=== PATIENT | female | born 1970 | race Caucasian/White ===

== ENCOUNTER 2018-04-04 16:09 | Emergency (ER) | payer BC ==
[2018-04-04 18:02] LABS: Absolute Lymphocytes (CBC) 1.5 K/uL (0.7-4.9); Absolute Monocytes 0.8 K/uL (0.1-1.3); Basophils % 0.6 % (0-1.3); Eosinophils % 3.7 % (0-4.4); Hematocrit 40.5 % (36.0-45.0); Lymphocytes % 12.6 % (15.3-44.8); MPV 9.3 fL (7.6-11.3); Monocytes % 6.6 % (3.3-12.3); RBC Red Blood Cell Count 5.58 M/uL (3.86-4.86)
[2018-04-04] MEDS ORDERED: VANCOMYCIN ORAL SOLN 250 MG/5 ML OSYR PO SCH (18:15)
[2018-04-04 18:21] LABS: Albumin 3.3 g/dL (3.4-5.0); Bilirubin Direct 0.1 mg/dL (0-0.2); Bilirubin Total 0.4 mg/dL (0.2-1.0); Potassium 3.1 mmol/L (3.5-5.1); Protein, Total 7.3 g/dL (6.4-8.2)
[2018-04-04] MEDS ORDERED: HYDROCODONE/APAP 5/325 MG TAB ONE (18:22)
[2018-04-04] MEDS ORDERED: KCL 20 MEQ/100 mL IVPB 20 MEQ/100 ML BAG IV ONE (18:56)
--- NOTE | 2018-04-04 20:16 | RAD REPORT ---
EXAM DESCRIPTION: CTAbdomen Pelvis W Contrast - 04/04/2018 8:06 pm CLINICAL HISTORY: Abdominal pain. ABD PAIN COMPARISON: Stone Protocol dated 03/07/2018; Stone Protocol dated 11/08/2017 TECHNIQUE: Biphasic CT imaging of the abdomen and pelvis was performed with 100 ml non-ionic IV cont rast. All CT scans are performed using dose optimization technique as appropriate and may include automated exposure control or mA/KV adjustment according to patient size. FINDINGS: The lung bases are clear. The liver, spleen, pancreas, adrenal glands are within normal limits. Small caliceal renal calculi bi laterally the largest on the right measuring 5 mm. No bowel obstruction, free air, free fluid or abscess. Inflammatory changes are seen throughout the e ntire colon, greatest in the descending colon the proximal sigmoid colon compatible with moderately s evere colitis. No pneumatosis coli seen. No evidence of appendicitis. No evidence of significant lym phadenopathy. No suspicious bony findings. IMPRESSION: Moderately severe colitis is present, greatest in the descending colon and proximal sigm oid colon. Bilateral nephrolithiasis without hydronephrosis
--- NOTE | 2018-04-04 20:40 | ER ---
Nurse's Notes [facility] Name: Shaylee Moraes Age: 48 yrs Sex: Female : 1970 Arrival Date: 04/04/2018 Time: 16:11 Bed 15 Private MD: Maynor Cabral E Diagnosis: Enterocolitis due to Clostridium difficile;Hypokalemia Presentation: 04/04 16:12 Presenting complaint: Patient states: i was 03/18/18; was tested for C Diff; reports and hj pain, nausea, and diarrhea getting worse for the last 3 days; took Imodium on and off;. Transition of care: patient was not received from another setting of care. Onset of symptoms was April 04, 2018. Risk Assessment: Do you want to hurt yourself or someone else? Patient reports no desire to harm self or others. Initial Sepsis Screen: Does the patient meet any 2 criteria? No. Patient's initial sepsis screen is negative. Does the patient have a suspected source of infection? No. Patient's initial sepsis screen is negative. Care prior to arrival: None. 16:12 Method Of Arrival: Ambulatory 16:12 Acuity: MIYA 3 hj Triage Assessment: 16:16 General: Appears in no apparent distress. uncomfortable, Behavior is calm, cooperative, hj appropriate for age. Pain: Complains of pain in abdomen. GI: Reports lower abdominal pain, upper abdominal pain, nausea. 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 - Social history:: Smoking status: Patient/guardian denies using tobacco, Patient/guardian denies using alcohol. - Ebola Screening: : Patient negative for fever greater than or equal to 101.5 degrees Fahrenheit, and additional compatible Ebola Virus Disease symptoms Patient denies exposure to infectious person Patient denies travel to an Ebola-affected area in the 21 days before illness onset. Screenin:16 Abuse screen: Denies threats or abuse. Denies injuries from another. Nutritional hj screening: No deficits noted. Tuberculosis screening: No symptoms or risk factors identified. Fall Risk None identified. Assessment: 16:16 GI: Abdomen is non-distended, obese. hj 16:30 General: Appears uncomfortable, obese, Behavior is calm, cooperative. Neuro: No ls4 deficits noted. Cardiovascular: No deficits noted. Respiratory: No deficits noted. GI: Reports lower abdominal pain, upper abdominal pain, cramping, diarrhea, bloody stool, epigastric pain, flatulence, gaseousness. : No deficits noted. Musculoskeletal: No deficits noted. 17:40 Reassessment: Patient and/or family updated on plan of care and expected duration. Pain ls4 level reassessed. Patient is alert, oriented x 3, equal unlabored respirations, skin warm/dry/pink. 18:40 Reassessment: Patient and/or family updated on plan of care and expected duration. Pain ls4 level reassessed. Patient is alert, oriented x 3, equal unlabored respirations, skin warm/dry/pink. 19:00 General: Appears in no apparent distress. comfortable, slender, Behavior is calm, rr5 cooperative, appropriate for age. 19:00 Pain: Complains of pain in left lower quadrant Pain radiates to right lower quadrant rr5 Pain currently is 6 out of 10 on a pain scale. Quality of pain is described as aching, Pain began gradually, Is intermittent. Neuro: Level of Consciousness is awake, alert, obeys commands, Oriented to person, place, time, situation, Appropriate for age. Cardiovascular: Capillary refill < 3 seconds Patient's skin is warm and dry. Respiratory: Airway is patent Respiratory effort is even, unlabored, Respiratory pattern is regular, symmetrical. GI: Abdomen is obese, Reports lower abdominal pain, cramping, diarrhea, epigastric pain, flatulence, gaseousness. : No deficits noted. EENT: No signs and/or symptoms were reported regarding the EENT system. Derm: Skin is intact, Skin temperature is warm. 20:10 Reassessment: Patient appears in no apparent distress at this time. Patient is alert, rr5 oriented x 3, equal unlabored respirations, skin warm/dry/pink. awaiting for CT scan report. 21:30 Reassessment: Patient appears in no apparent distress at this time. Patient is alert, rr5 oriented x 3, equal unlabored respirations, skin warm/dry/pink. reassess by provider patient is for discharge after the infusion. Patient states symptoms have improved. 22:30 Reassessment: Patient appears in no apparent distress at this time. Patient and/or rr5 family updated on plan of care and expected duration. Pain level reassessed. Patient is alert, oriented x 3, equal unlabored respirations, skin warm/dry/pink. discharge instruction given and explained without complaints made. Vital Signs: 16:16 BP 137 / 83; Pulse 107; Resp 18; Temp 97.5(TE); Pulse Ox 96% on R/A; Weight 117.93 kg; hj Height 5 ft. 5 in. (165.10 cm); Pain 7/10; 18:40 BP 132 / 74; Pulse 89; Resp 16; Temp 97.9; Pulse Ox 99% on R/A; Pain 5/10; ls4 21:11 BP 119 / 73; Pulse 82; Resp 20; Pulse Ox 98% on R/A; mt 16:16 Body Mass Index 43.26 (117.93 kg, 165.10 cm) hj ED Course: 16:11 Patient arrived in ED. mr 16:11 Maynor Cabral MD is Private Physician. mr 16:14 Triage completed. hj 16:15 Initial lab(s) drawn, by sd, sent to lab. Inserted saline lock: 20 gauge in right hand, ls4 using aseptic technique. 16:16 Arm band placed on left wrist. hj 16:18 Patient has correct armband on for positive identification. Placed in gown. Bed in low hj position. Call light in reach. Side rails up X 1. Adult w/ patient. 16:20 Melissa Ramírez, DENNIS is Primary Nurse. ls4 16:44 Ladan Zurita FNP-C is PHCP. snw 16:44 Maynor Maravilla MD is Attending Physician. snw 18:42 No provider procedures requiring assistance completed. ls4 19:43 Radiology exam delayed due to IV insertion attempt and/or patient not having vm2 appropriate IV at this time. 20:00 Inserted saline lock: 20 gauge in left forearm, using aseptic technique. rr5 20:08 CT Abd/Pelvis - W/Contrast In Process Unspecified. EDMS 20:39 Maynor Cabral MD is Referral Physician. snw 22:33 IV discontinued, intact, bleeding controlled, No redness/swelling at site. Pressure rr5 dressing applied. Administered Medications: 18:16 Drug: Elton 5 mg-325 mg 1 tabs Route: PO; ls4 18:43 Follow up: Response: No adverse reaction; Marked relief of symptoms ls4 18:39 Drug: vancoMYCIN 250 mg Route: PO; ls4 18:43 Follow up: Response: No adverse reaction ls4 19:33 Drug: Potassium Chloride 20 mEq Route: IV; Rate: calculated rate; Site: right hand; rr5 21:30 Follow up: Response: No adverse reaction; IV Status: Completed infusion; IV Intake: rr5 100ml 19:33 Drug: NS 0.9% 1000 ml Route: IV; Rate: 1 bolus; Site: right hand; rr5 21:30 Follow up: Response: No adverse reaction; IV Status: Completed infusion; IV Intake: rr5 1000ml 21:35 Drug: Bentyl 20 mg Route: PO; rr5 22:07 Follow up: Response: No adverse reaction rr5 21:36 Drug: fentaNYL (PF) 50 mcg Route: IM; Site: right gluteus; rr5 22:08 Follow up: Response: No adverse reaction rr5 22:05 CANCELLED (not available. provider informed): vancoMYCIN 250 mg PO once rr5 Intake: 21:30 IV: 1000ml; Total: 1000ml. rr5 21:30 IV: 100ml; Total: 1100ml. rr5 Outcome: 20:39 Discharge ordered by . snw 22:35 Discharged to home ambulatory, with family. rr5 22:35 Condition: stable 22:35 Discharge instructions given to patient, Instructed on discharge instructions, follow up and referral plans. medication usage, Demonstrated understanding of instructions, follow-up care, medications, Prescriptions given X 4. 22:36 Patient left the ED. rr5 Signatures: Dispatcher [employer] EDMS Ladan Zurita, TOOLING ENGINEER-C TOOLING ENGINEER-Csnw UrbanoTeena OracioCameron dobbins RN DENNIS Velvet [facility] Mariella [place] Melissa Ramírez RN RN ls4 Car Wahl RN RN rr5 Corrections: (The following items were deleted from the chart) 16:19 16:16 Pulse 107bpm; Resp 18bpm; Pulse Ox 96% RA; Temp 97.5F Temporal; 117.93 kg; Height hj 5 ft. 5 in.; BMI: 43.2; Pain 710; hj 19:43 19:16 Patient moved to [facility] vm2
--- NOTE | 2018-04-04 20:40 | EDPHYS ---
Physician Documentation [facility] Name: Shaylee Moraes Age: 48 yrs Sex: Female : 1970 Arrival Date: 04/04/2018 Time: 16:11 Bed 15 Private MD: Maynor Cabral E ED Physician Maynor Maravilla HPI: 04/04 19:33 This 48 yrs old Female presents to ER via Ambulatory with complaints of snw Nausea, Dizziness, Abdominal Pain. 19:33 The patient presents to the emergency department with nausea, diarrhea, abdominal pain, snw of the right lower quadrant and left lower quadrant, described as achy, crampy, and does not radiate. Onset: The symptoms/episode began/occurred 2 day(s) ago, 2 month(s) ago, and became persistent. Possible causes: antibiotics, pt dx yesterday with C. diff. The symptoms are aggravated by nothing. Severity of symptoms: At their worst the symptoms were moderate. The patient has not experienced similar symptoms in the past. The patient has been recently seen by a physician: the patient's primary care provider. 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 - Social history:: Smoking status: Patient/guardian denies using tobacco, Patient/guardian denies using alcohol. - Ebola Screening: : Patient negative for fever greater than or equal to 101.5 degrees Fahrenheit, and additional compatible Ebola Virus Disease symptoms Patient denies exposure to infectious person Patient denies travel to an Ebola-affected area in the 21 days before illness onset. ROS: 19:33 Constitutional: Negative for fever, chills, and weight loss, Eyes: Negative for injury, snw pain, redness, and discharge, ENT: Negative for injury, pain, and discharge, Neck: Negative for injury, pain, and swelling, Cardiovascular: Negative for chest pain, palpitations, and edema, Respiratory: Negative for shortness of breath, cough, wheezing, and pleuritic chest pain, Back: Negative for injury and pain, : Negative for injury, bleeding, discharge, and swelling, MS/Extremity: Negative for injury and deformity, Skin: Negative for injury, rash, and discoloration, Neuro: Negative for headache, weakness, numbness, tingling, and seizure. 19:33 Abdomen/GI: Positive for abdominal pain, diarrhea, abdominal cramps, very mucus like in nature. Exam: 19:31 Constitutional: This is a well developed, well nourished patient who is awake, alert, snw and in no acute distress. Head/Face: Normocephalic, atraumatic. Eyes: Pupils equal round and reactive to light, extra-ocular motions intact. Lids and lashes normal. Conjunctiva and sclera are non-icteric and not injected. Cornea within normal limits. Periorbital areas with no swelling, redness, or edema. ENT: Nares patent. No nasal discharge, no septal abnormalities noted. Tympanic membranes are normal and external auditory canals are clear. Oropharynx with no redness, swelling, or masses, exudates, or evidence of obstruction, uvula midline. Mucous membranes moist. Neck: Trachea midline, no thyromegaly or masses palpated, and no cervical lymphadenopathy. Supple, full range of motion without nuchal rigidity, or vertebral point tenderness. No Meningismus. Chest/axilla: Normal chest wall appearance and motion. Nontender with no deformity. No lesions are appreciated. Cardiovascular: Regular rate and rhythm with a normal S1 and S2. No gallops, murmurs, or rubs. Normal PMI, no JVD. No pulse deficits. Respiratory: Lungs have equal breath sounds bilaterally, clear to auscultation and percussion. No rales, rhonchi or wheezes noted. No increased work of breathing, no retractions or nasal flaring. Back: No spinal tenderness. No costovertebral tenderness. Full range of motion. Skin: Warm, dry with normal turgor. Normal color with no rashes, no lesions, and no evidence of cellulitis. MS/ Extremity: Pulses equal, no cyanosis. Neurovascular intact. Full, normal range of motion. Neuro: Awake and alert, GCS 15, oriented to person, place, time, and situation. Cranial nerves II-XII grossly intact. Motor strength 5/5 in all extremities. Sensory grossly intact. Cerebellar exam normal. Normal gait. Psych: Awake, alert, with orientation to person, place and time. Behavior, mood, and affect are within normal limits. 19:31 Abdomen/GI: Inspection: obese Bowel sounds: normal, in all quadrants, Palpation: moderate abdominal tenderness, in the right lower quadrant and left lower quadrant. Vital Signs: 16:16 BP 137 / 83; Pulse 107; Resp 18; Temp 97.5(TE); Pulse Ox 96% on R/A; Weight 117.93 kg; hj Height 5 ft. 5 in. (165.10 cm); Pain 7/10; 18:40 BP 132 / 74; Pulse 89; Resp 16; Temp 97.9; Pulse Ox 99% on R/A; Pain 5/10; ls4 21:11 BP 119 / 73; Pulse 82; Resp 20; Pulse Ox 98% on R/A; mt 16:16 Body Mass Index 43.26 (117.93 kg, 165.10 cm) MDM: 17:00 Patient medically screened. snw 20:47 Data reviewed: vital signs, nurses notes. Data interpreted: Pulse oximetry: on room air snw is 99 %. Interpretation: normal. Counseling: I had a detailed discussion with the patient and/or guardian regarding: the historical points, exam findings, and any diagnostic results supporting the discharge/admit diagnosis, lab results, radiology results, the need for outpatient follow up, to return to the emergency department if symptoms worsen or persist or if there are any questions or concerns that arise at home. Special discussion: Based on the patient's Hx, exam, and Dx evaluation, there is no indication for emergent surgery or inpatient Tx. It is understood by the patient/guardian that if the Sx's persist or worsen they need to return immediately for re-evaluation. Based on the history and exam findings, there is no indication for further emergent testing or inpatient evaluation. 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 I discussed with the patient/guardian the need to see the primary care provider for further evaluation of the symptoms. 04/04 17:21 Order name: Basic Metabolic Panel; Complete Time: 18:33 snw 04/04 17:21 Order name: CBC with Diff; Complete Time: 18:33 snw 04/04 17:21 Order name: Creatinine for Radiology; Complete Time: 18:33 snw 04/04 17:21 Order name: Hepatic Function; Complete Time: 18:33 snw 04/04 17:21 Order name: Lipase; Complete Time: 18:33 snw 04/04 20:05 Order name: Urine Dipstick--Ancillary (enter results); Complete Time: 21:40 mw2 04/04 17:21 Order name: CT Abd/Pelvis - W/Contrast; Complete Time: 20:26 snw 04/04 20:05 Order name: Urine --Ancillary (enter results); Complete Time: 21:40 mw2 04/04 17:21 Order name: IV Saline Lock; Complete Time: 19:03 snw 04/04 17:21 Order name: Labs collected and sent; Complete Time: 19:03 snw Administered Medications: 18:16 Drug: Closplint 5 mg-325 mg 1 tabs Route: PO; ls4 18:43 Follow up: Response: No adverse reaction; Marked relief of symptoms ls4 18:39 Drug: vancoMYCIN 250 mg Route: PO; ls4 18:43 Follow up: Response: No adverse reaction ls4 19:33 Drug: Potassium Chloride 20 mEq Route: IV; Rate: calculated rate; Site: right hand; rr5 21:30 Follow up: Response: No adverse reaction; IV Status: Completed infusion; IV Intake: rr5 100ml 19:33 Drug: NS 0.9% 1000 ml Route: IV; Rate: 1 bolus; Site: right hand; rr5 21:30 Follow up: Response: No adverse reaction; IV Status: Completed infusion; IV Intake: rr5 1000ml 21:35 Drug: Bentyl 20 mg Route: PO; rr5 22:07 Follow up: Response: No adverse reaction rr5 21:36 Drug: fentaNYL (PF) 50 mcg Route: IM; Site: right gluteus; rr5 22:08 Follow up: Response: No adverse reaction rr5 22:05 CANCELLED (not available. provider informed): vancoMYCIN 250 mg PO once rr5 Disposition: 04/05 12:46 Co-signature as Attending Physician, Maynor Maravilla MD I agree with the assessment and wa plan of care. Disposition: 04/04/18 20:39 Discharged to Home. Impression: Enterocolitis due to Clostridium difficile, Hypokalemia. - Condition is Stable. - Discharge Instructions: Clear Liquid Diet, Adult, Clostridium Difficile Infection, Antibiotic Medicine, Adult, Hypokalemia. - Prescriptions for Zofran 4 mg Oral Tablet - take 1 tablet by ORAL route every 12 hours As needed; 20 tablet. vancomycin 250 mg Oral capsule - take 1 capsule by ORAL route every 8 hours for 7 days; 30 capsule. Ultram 50 mg Oral Tablet - take 1 tablet by ORAL route every 6 hours As needed; 20 tablet. Lactobacillus acidophilus - take 1 capsule by ORAL route 2 times per day; 40 capsule. - Medication Reconciliation Form, Thank You Letter, Antibiotic Education, Prescription Opioid Use form. - Follow up: Maynor Cabral MD; When: 1 - 2 days; Reason: Recheck today's complaints, Continuance of care, Re-evaluation by your physician. Follow up: Emergency Department; When: As needed; Reason: Worsening of condition. Signatures: Dispatcher [employer] EDMS Ladan Zurita, DIRECTOR BLOOD BANK-C DIRECTOR BLOOD BANK-Csnw Cameron Narayanan, RN RN hj Maynor Maravilla MD MD wa Stewart, Lisa, RN RN ls4 Car Wahl, RN RN rr5 Corrections: (The following items were deleted from the chart) 04/04 20:48 20:39 04/04/2018 20:39 Discharged to Home. Impression: Enterocolitis due to Clostridium snw difficile. Condition is Stable. Forms are Medication Reconciliation Form, Thank You Letter, Antibiotic Education, Prescription Opioid Use. Follow up: Maynor Cabral; When: 1 - 2 days; Reason: Recheck today's complaints, Continuance of care, Re-evaluation by your physician. Follow up: Emergency Department; When: As needed; Reason: Worsening of condition. snw 22:05 21:21 vancoMYCIN 250 mg PO once ordered. snw rr5 22:36 20:48 04/04/2018 20:39 Discharged to Home. Impression: Enterocolitis due to Clostridium rr5 difficile; Hypokalemia. Condition is Stable. Discharge Instructions: Clear Liquid Diet, Adult, Clostridium Difficile Infection, Antibiotic Medicine, Adult, Hypokalemia. Prescriptions for Zofran 4 mg Oral Tablet - take 1 tablet by ORAL route every 12 hours As needed; 20 tablet, vancomycin 250 mg Oral capsule - take 1 capsule by ORAL route every 8 hours for 7 days; 30 capsule, Ultram 50 mg Oral Tablet - take 1 tablet by ORAL route every 6 hours As needed; 20 tablet, Lactobacillus acidophilus - take 1 capsule by ORAL route 2 times per day; 40 capsule. and Forms are Medication Reconciliation Form, Thank You Letter, Antibiotic Education, Prescription Opioid Use. Follow up: Maynor Cabral; When: 1 - 2 days; Reason: Recheck today's complaints, Continuance of care, Re-evaluation by your physician. Follow up: Emergency Department; When: As needed; Reason: Worsening of condition. snw
[2018-04-04 21:36] LABS: Urine Blood 3+ (NEG); Urine Glucose NEGATIVE (NEG); Urine Protein 1+ (NEG)
[2018-04-04] MEDS ORDERED: DICYCLOMINE HCL 10 MG CAP ONE (21:41)
[2018-04-04] MEDS ORDERED: FENTANYL CITR 100 MCG/2 ML ONE (21:42)
== END 2018-04-04 22:36 | disposition home or self-care (01) ==
LOC: ER 16:09
DX: A04.72 Enterocolitis due to Clostridium difficile, not specified as recurrent (principal); E87.6 Hypokalemia; I10 Essential (primary) hypertension; Z88.2 Allergy status to sulfonamides; Z88.8 Allergy status to other drugs, medicaments and biological substances
CPT/HCPCS: 36415; 74177; 80048; 80076; 81003; 81025; 83690; 85025; 96365; 96366; 96372; 99284; J3010; Q9967

== ENCOUNTER 2019-10-15 22:09 | Emergency (ER) | payer BC, OTHER ==
[2019-10-16 01:25] LABS: Protime INR 1.09
[2019-10-16 01:26] LABS: Absolute Lymphocytes (CBC) 0.8 K/uL (0.7-4.9); Basophils % 0.6 % (0-1.3); Hematocrit 35.7 % (36.0-45.0); Lymphocytes % 11.1 % (15.3-44.8); MPV 8.9 fL (7.6-11.3); RBC Red Blood Cell Count 4.72 M/uL (3.86-4.86)
[2019-10-16 01:51] LABS: Urine Bacteria 20-50 /HPF (<20); Urine RBC <5 /HPF (NONE SEEN)
[2019-10-16 01:52] LABS: Urine Culture Reflex Order REFLEXED
[2019-10-16] MEDS ORDERED: CEFTRIAXONE/SWI 1gm 1 GM/10 ML SYR ONE (02:13)
[2019-10-16 02:18] LABS: ALT/SGPT 23 U/L (12-78); AST/SGOT 12 U/L (15-37); Albumin 3.3 g/dL (3.4-5.0); Alkaline Phosphatase 80 U/L (45-117); BUN Blood Urea Nitrogen 7 mg/dL (7-18); Bicarbonate 24 mmol/L (21-32); Bilirubin Direct 0.1 mg/dL (0-0.2); Bilirubin Total 0.4 mg/dL (0.2-1.0); Glucose Level 100 mg/dL (74-106); Magnesium 1.8 mg/dL (1.8-2.4); NT PRO-BNP 34 pg/mL (<125); Potassium 3.2 mmol/L (3.5-5.1); Protein, Total 7.2 g/dL (6.4-8.2); Sodium Level 138 mmol/L (136-145); Troponin (Emerg Dept Use Only) < 0.02 ng/mL (0.0-0.045)
[2019-10-16 02:31] LABS: Ferritin 28.3 ng/mL (8-388)
[2019-10-16] MEDS ORDERED: POTASSIUM CL SA 10 MEQ TAB PO ONE (03:42)
--- NOTE | 2019-10-16 03:46 | EDPHYS ---
Physician Documentation [facility] Name: Shaylee Moraes Age: 49 yrs Sex: Female : 1970 Arrival Date: 10/15/2019 Time: 22:15 Bed 14 Private MD: ED Physician Martin Rothman HPI: 10/15 00:00 This 49 yrs old Female presents to ER via Ambulatory with complaints of jr8 Shortness Of Breath, Fever. 00:00 The patient has shortness of breath at rest. jr8 00:01 Onset: The symptoms/episode began/occurred gradually, 2 day(s) ago. Duration: The jr8 symptoms are continuous. The patient's shortness of breath has no apparent modifying factors. Associated signs and symptoms: Pertinent positives: non-productive cough, fever. Severity of symptoms: At their worst the symptoms were mild in the emergency department the symptoms are unchanged. The patient has not experienced similar symptoms in the past. The patient has not recently seen a physician. Now having abdominal pain. Was passing stones for the past two days but pain was on left side . 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 - Social history:: Smoking status: Patient/guardian denies using tobacco, but has a distant history of tobacco abuse. ROS: 10/15 00:02 Eyes: Negative for injury, pain, redness, and discharge, ENT: Negative for injury, jr8 pain, and discharge, Neck: Negative for injury, pain, and swelling, Cardiovascular: Negative for chest pain, palpitations, and edema, Back: Negative for injury and pain, MS/Extremity: Negative for injury and deformity, Skin: Negative for injury, rash, and discoloration, Neuro: Negative for headache, weakness, numbness, tingling, and seizure. Constitutional: Positive for body aches, chills, fever. Respiratory: Positive for cough, shortness of breath. Abdomen/GI: Positive for abdominal pain, Negative for nausea, vomiting, and diarrhea, abdominal distension, anorexia, dysphagia, hematemesis, black/tarry stool, rectal pain, rectal bleeding, bowel incontinence, flatulence. Exam: 00:02 Eyes: Pupils equal round and reactive to light, extra-ocular motions intact. Lids and jr8 lashes normal. Conjunctiva and sclera are non-icteric and not injected. Cornea within normal limits. Periorbital areas with no swelling, redness, or edema. ENT: Nares patent. No nasal discharge, no septal abnormalities noted. Tympanic membranes are normal and external auditory canals are clear. Oropharynx with no redness, swelling, or masses, exudates, or evidence of obstruction, uvula midline. Mucous membranes moist. Neck: Trachea midline, no thyromegaly or masses palpated, and no cervical lymphadenopathy. Supple, full range of motion without nuchal rigidity, or vertebral point tenderness. No Meningismus. Cardiovascular: Tachycardic with a normal S1 and S2. No gallops, murmurs, or rubs. Normal PMI, no JVD. No pulse deficits. Respiratory: Lungs have equal breath sounds bilaterally, clear to auscultation and percussion. No rales, rhonchi or wheezes noted. No increased work of breathing, no retractions or nasal flaring. Back: No spinal tenderness. No costovertebral tenderness. Full range of motion. Skin: Warm, dry with normal turgor. Normal color with no rashes, no lesions, and no evidence of cellulitis. MS/ Extremity: Pulses equal, no cyanosis. Neurovascular intact. Full, normal range of motion. Neuro: Awake and alert, GCS 15, oriented to person, place, time, and situation. Cranial nerves II-XII grossly intact. Motor strength 5/5 in all extremities. Sensory grossly intact. Cerebellar exam normal. Normal gait. 00:02 Abdomen/GI: Inspection: obese Bowel sounds: active, all quadrants, Palpation: soft, in all quadrants, moderate abdominal tenderness, in the right lower quadrant, mass, is not appreciated, rebound tenderness, is not appreciated, voluntary guarding, is not appreciated, involuntary guarding, is not appreciated, no appreciated organomegaly, Indicators: McBurney's point is not tender, Graham's sign is negative, Rovsing's sign is negative, Liver: tenderness, is not appreciated. Vital Signs: 10/14 23:18 BP 126 / 82; Pulse 115; Resp 18; Temp 99.7(O); Pulse Ox 98% on R/A; Weight 137.89 kg; vc Height 5 ft. 5 in. (165.10 cm); 10/15 02:12 BP 139 / 72; Pulse 88; Resp 18; Pulse Ox 98% on R/A; vc 03:00 BP 156 / 73; Pulse 97; Resp 16; Pulse Ox 99% on R/A; vc 04:02 BP 103 / 81; Pulse 90; Resp 20; Temp 99.1(O); Pulse Ox 100% on R/A; lp1 10/14 23:18 Body Mass Index 50.59 (137.89 kg, 165.10 cm) vc MDM: 10/14 23:11 Patient medically screened. [facility] 10/15 02:16 ED course: Labs significantly delayed due to lab technical difficulties. . jr8 02:24 Data reviewed: vital signs, nurses notes, lab test result(s), radiologic studies, CT jr8 scan, plain films. Data interpreted: Pulse oximetry: on room air is 98 %. Interpretation: normal. Counseling: I had a detailed discussion with the patient and/or guardian regarding: the historical points, exam findings, and any diagnostic results supporting the discharge/admit diagnosis, lab results, radiology results. 10/14 23:25 Order name: Basic Metabolic Panel; Complete Time: 03:42 10/14 23:25 Order name: CBC with Diff; Complete Time: 01:37 10/14 23:25 Order name: LFT's; Complete Time: 03:42 10/14 23:25 Order name: Magnesium; Complete Time: 03:42 10/14 23:25 Order name: NT PRO-BNP; Complete Time: 03:42 10/14 23:25 Order name: PT-INR; Complete Time: 01:37 10/14 23:25 Order name: Troponin (emerg Dept Use Only); Complete Time: 03:42 10/14 23:25 Order name: XRAY Chest (1 view) 10/14 23:25 Order name: CRP; Complete Time: 03:42 10/14 23:25 Order name: Ferritin; Complete Time: 03:42 10/14 23:25 Order name: Blood Culture Adult (2) 10/14 23:57 Order name: COVID-19 10/15 00:02 Order name: Urine Microscopic Only; Complete Time: 01:54 10/15 01:53 Order name: Urine Culture EDMS 10/14 23:25 Order name: EKG; Complete Time: 23:26 10/14 23:25 Order name: Cardiac monitoring; Complete Time: 01:22 10/14 23:25 Order name: EKG - Nurse/Tech; Complete Time: 01:22 10/14 23:25 Order name: IV Saline Lock; Complete Time: 00:43 10/14 23:25 Order name: Labs collected and sent; Complete Time: 00:43 10/14 23:25 Order name: O2 Per Protocol; Complete Time: 00:02 10/14 23:25 Order name: O2 Sat Monitoring; Complete Time: 00:02 10/15 00:02 Order name: Urine Test (obtain specimen); Complete Time: 01:21 10/15 00:02 Order name: Urine Dipstick-Ancillary (obtain specimen); Complete Time: 01:22 10/15 01:38 Order name: CT Abd/Pelvis - IV Contrast Only Administered Medications: 02:07 Drug: Rocephin 1 grams Route: IV; Rate: calculated rate; Site: right antecubital; vc 03:39 Drug: Potassium Chloride 40 mEq Route: PO; vc 03:39 Follow up: Response: No adverse reaction vc Disposition: 06:11 Co-signature as Attending Physician, Martin Rothman MD. [email or web address] Disposition: 10/16/19 03:46 Discharged to Home. Impression: Viral infection, unspecified, Encounter for screening for other viral diseases, Acute cystitis. - Condition is Stable. - Discharge Instructions: Urinary Tract Infection, Adult, Viral Respiratory Infection, COVID-19. - Prescriptions for Augmentin 875- 125 mg Oral Tablet - take 1 tablet by ORAL route every 12 hours for 10 days; 20 tablet. Prednisone 20 mg Oral Tablet - take 1 tablet by ORAL route once daily for 5 days; 5 tablet. - Medication Reconciliation Form, Thank You Letter, Antibiotic Education, Prescription Opioid Use form. - Follow up: Private Physician; When: 1 week; Reason: Recheck today's complaints, Continuance of care, Re-evaluation by your physician. - Problem is new. - Symptoms have improved. Signatures: Dispatcher [employer] EDMS Ofelia Dominguez RN RN lp1 Armani Glass PA PA jr8 Anuj Bermudez, CAT SCAN TECHNOLOGIST-C CAT SCAN TECHNOLOGIST-Cla1 Shaylee Guillen RN RN Martin Rothman MD MD 7 Corrections: (The following items were deleted from the chart) 00:02 00:00 The patient has shortness of breath at rest, jr8 jr8 02:23 02:16 ED course: Labs significantly delayed . jr8 jr8 04:05 03:46 10/16/2019 03:46 Discharged to Home. Impression: Viral infection, unspecified; lp1 Encounter for screening for other viral diseases; Acute cystitis. Condition is Stable. Discharge Instructions: Urinary Tract Infection, Adult, Viral Respiratory Infection, COVID-19. Prescriptions for Augmentin 875-125 mg Oral Tablet - take 1 tablet by ORAL route every 12 hours for 10 days; 20 tablet, Prednisone 20 mg Oral Tablet - take 1 tablet by ORAL route once daily for 5 days; 5 tablet. and Forms are Medication Reconciliation Form, Thank You Letter, Antibiotic Education, Prescription Opioid Use. Follow up: Private Physician; When: 1 week; Reason: Recheck today's complaints, Continuance of care, Re-evaluation by your physician. Problem is new. Symptoms have improved. la1
--- NOTE | 2019-10-16 03:46 | ER ---
Nurse's Notes [facility] Name: Shaylee Moraes Age: 49 yrs Sex: Female : 1970 Arrival Date: 10/15/2019 Time: 22:15 Bed 14 Private MD: Diagnosis: Viral infection, unspecified;Encounter for screening for other viral diseases;Acute cystitis Presentation: 10/14 23:18 Chief complaint: Patient states: "I've been feeling short of breath, I had a fever of vc 100.8, cough, headache, and some weakness. Coronavirus screen: cough unrelated to allergies, fatigue, fever, headache, shortness of breath, Client presents with at least one sign or symptom that may indicate coronavirus-19. Standard/surgical mask placed on the client. Provider contacted for isolation considerations. Ebola Screen: No symptoms or risks identified at this time. Initial Sepsis Screen: Does the patient meet any 2 criteria? HR > 90 bpm. No. Patient's initial sepsis screen is negative. Does the patient have a suspected source of infection? No. Patient's initial sepsis screen is negative. Risk Assessment: Do you want to hurt yourself or someone else? Patient reports no desire to harm self or others. Onset of symptoms is unknown. 23:18 Method Of Arrival: Ambulatory vc 23:18 Acuity: MIYA 3 vc Triage Assessment: 23:30 General: Appears Behavior is calm, cooperative, appropriate for age. Respiratory: vc Reports shortness of breath at rest Onset: The symptoms/episode began/occurred gradually, the patient has mild shortness of breath. 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 - Social history:: Smoking status: Patient/guardian denies using tobacco, but has a distant history of tobacco abuse. Screenin:30 Abuse screen: Denies threats or abuse. Nutritional screening: No deficits noted. vc Tuberculosis screening: No symptoms or risk factors identified. Fall Risk None identified. Assessment: 23:30 Pain: Complains of pain in right lower quadrant Pain does not radiate. Pain currently vc is 3 out of 10 on a pain scale. at worst was 10 out of 10 on a pain scale. Cardiovascular: Rhythm is sinus rhythm. Respiratory: Airway is patent Respiratory effort is even, unlabored, Breath sounds are clear. GI: No signs and/or symptoms were reported involving the gastrointestinal system. : Urine is cloudy. Derm: No signs and/or symptoms reported regarding the dermatologic system. Musculoskeletal: No signs and/or symptoms reported regarding the musculoskeletal system. 10/15 00:30 Reassessment: Patient appears in no apparent distress at this time. Patient and/or vc family updated on plan of care and expected duration. Pain level reassessed. Patient is alert, oriented x 3, equal unlabored respirations, skin warm/dry/pink. 01:30 Reassessment: Patient appears in no apparent distress at this time. Patient and/or vc family updated on plan of care and expected duration. Pain level reassessed. Patient is alert, oriented x 3, equal unlabored respirations, skin warm/dry/pink. 02:30 Reassessment: Patient appears in no apparent distress at this time. Patient and/or vc family updated on plan of care and expected duration. Pain level reassessed. Patient is alert, oriented x 3, equal unlabored respirations, skin warm/dry/pink. 03:23 Reassessment: Patient appears in no apparent distress at this time. Patient and/or vc family updated on plan of care and expected duration. Pain level reassessed. Patient is alert, oriented x 3, equal unlabored respirations, skin warm/dry/pink. 04:02 Reassessment: Patient appears in no apparent distress at this time. Patient is alert, lp1 oriented x 3, equal unlabored respirations, skin warm/dry/pink. Patient demonstrates understanding of discharge instructions; aware of quarantine until COVID results. Vital Signs: 10/14 23:18 BP 126 / 82; Pulse 115; Resp 18; Temp 99.7(O); Pulse Ox 98% on R/A; Weight 137.89 kg; vc Height 5 ft. 5 in. (165.10 cm); 10/15 02:12 BP 139 / 72; Pulse 88; Resp 18; Pulse Ox 98% on R/A; vc 03:00 BP 156 / 73; Pulse 97; Resp 16; Pulse Ox 99% on R/A; vc 04:02 BP 103 / 81; Pulse 90; Resp 20; Temp 99.1(O); Pulse Ox 100% on R/A; lp1 10/14 23:18 Body Mass Index 50.59 (137.89 kg, 165.10 cm) vc ED Course: 10/14 22:15 Patient arrived in ED. bp1 23:11 Armani Glass PA is PHCP. jr8 23:11 Martin Rothman MD is Attending Physician. jr8 23:17 Shaylee Guillen, DENNIS is Primary Nurse. vc 23:22 Triage completed. vc 23:30 Arm band placed on. vc 23:30 Patient has correct armband on for positive identification. Placed in gown. Bed in low vc position. Call light in reach. Side rails up X 1. supervisor parking lot on. Pulse ox on. NIBP on. 23:44 XRAY Chest (1 view) In Process Unspecified. EDMS 10/15 00:40 Inserted saline lock: 18 gauge in right antecubital area, using aseptic technique. ds4 Blood collected. 03:20 CT Abd/Pelvis - IV Contrast Only In Process Unspecified. EDMS 04:02 No provider procedures requiring assistance completed. IV discontinued, No lp1 redness/swelling at site. Pressure dressing applied. Administered Medications: 02:07 Drug: Rocephin 1 grams Route: IV; Rate: calculated rate; Site: right antecubital; vc 03:39 Drug: Potassium Chloride 40 mEq Route: PO; vc 03:39 Follow up: Response: No adverse reaction vc Outcome: 03:46 Discharge ordered by . la1 04:03 Discharged to home ambulatory. lp1 04:03 Condition: good 04:03 Discharge instructions given to patient, Instructed on discharge instructions, follow up and referral plans. medication usage, Demonstrated understanding of instructions, follow-up care, medications, Prescriptions given X 2. 04:05 Patient left the ED. lp1 Addendum: 10/19/2019 08:32 Addendum: Culture Results: Positive urine culture. No further action required. Bacteria a a5 sensitive to prescribed antibiotic. 16:08 Addendum: COVID-19 Result: Negative result given to RN to notify pt. Notified pt of a a5 negative COVID 19 swab results. Pt advised that even with a negative test result they should remain in isolation until symptom free for 3 days without medication. Pt also advised to return to the ED for worsening symptoms. Signatures: Dispatcher [employer] EDClementina Hancock, RN RN aa5 Ofelia Dominguez RN RN lp1 Armani Glass, ALEJANDRO ALLEN jr8 Hal Serna ds4 Anuj Bermudez, AERONAUTICAL DESIGN ENGINEER-C AERONAUTICAL DESIGN ENGINEER-Cla1 Shaylee Guillen RN RN vc Devika Caldwell bp1 Corrections: (The following items were deleted from the chart) 10/15 02:12 02:08 Respiratory: Airway is patent Respiratory effort is even, unlabored, Breath vc sounds are clear vc 02: 02:08 Cardiovascular: Rhythm is sinus rhythm vc vc 02:12 02:08 Pain: Complains of pain in right lower quadrant Pain does not radiate. Pain vc currently is 3 out of 10 on a pain scale. at worst was 10 out of 10 on a pain scale. vc 02:12 02:08 GI: No signs and/or symptoms were reported involving the gastrointestinal system. vc vc 02:12 02:08 : Urine is cloudy, vc vc 02:12 02:08 Derm: No signs and/or symptoms reported regarding the dermatologic system. vc vc 02:12 02:08 Musculoskeletal: No signs and/or symptoms reported regarding the musculoskeletal vc system. vc 04:05 04:02 BP 103 / 81; Pulse 90bpm; Resp 20bpm; Pulse Ox 100% RA; lp1 lp1
[2019-10-16 05:01] VITALS: BP 103/81; TEMP 99.1; O2SAT 100
--- NOTE | 2019-10-16 08:39 | EKG ---
Test Date: 2019-10-16 Test Time: 00:59:00 Cargo Service Supervisor: JACKIE MEASUREMENT RESULTS: Intervals: Rate: 88 SC: 152 QRSD: 76 QT: 368 QTc: 445 Anderson: P: 55 SC: 152 QRS: 31 T: 62 INTERPRETIVE STATEMENTS: Normal sinus rhythm Normal ECG Compared to ECG 01/19/2016 09:11:56 Sinus arrhythmia no longer present T-wave abnormality no longer present Electronically Signed On 10-16-19 08:38:08 CDT by Thiago Villanueva
--- NOTE | 2019-10-16 08:56 | RAD REPORT ---
EXAM DESCRIPTION: RAD - Chest Single View - 10/15/2019 11:43 pm CLINICAL HISTORY: DYSPNEA Chest pain. COMPARISON: Abdomen 1 View (KUB) dated 11/07/2017; Abdomen 1 View (KUB) dated 03/02/2016; Abdomen 1 Vie w (KUB) dated 07/14/2015; ABDOMEN 1 VIEW KUB dated 07/15/2014 FINDINGS: Portable technique limits examination quality. The lungs are grossly clear. The heart is normal in size. No displaced fractures. IMPRESSION: No acute intrathoracic process suspected.
--- NOTE | 2019-10-16 15:10 | RAD REPORT ---
EXAM DESCRIPTION: CT Abdomen and Pelvis With Intravenous Contrast CLINICAL HISTORY: The patient is 49 years old and is Female; ABD PAIN TECHNIQUE: Axial computed tomography images of the abdomen and pelvis with intravenous contrast. S agittal and coronal reformatted images were created and reviewed. This CT exam was performed using one or more of the following dose reduction techniques: automated exposure control, adjustment of t he mA and/or kV according to patient size, and/or use of iterative reconstruction technique. Delayed images were obtained. DLP: 3775 mGy*cm COMPARISON: Chest radiograph of the same day and CT abdomen and pelvis dated April 04, 2018. FINDINGS: LUNG BASES: Lung bases are clear. HEART: Visualized heart is normal. ABDOMEN: LIVER: Diffuse hepatic steatosis. GALLBLADDER AND BILE DUCTS: Prior cholecystectomy. No ductal dilation. PANCREAS: Unremarkable. No mass. No ductal dilation. SPLEEN: Unremarkable. No splenomegaly. ADRENALS: Unremarkable. No mass. KIDNEYS AND URETERS: Punctate nonobstructive bilateral renal stones. No hydronephrosis or hydroure ter. 1.2 cm left renal cyst with small calcification. STOMACH AND BOWEL: Distal colonic and sigmoid colonic diverticulosis. No acute diverticulitis. No obstruction. PELVIS: APPENDIX: No findings to suggest acute appendicitis. BLADDER: Bladder is decompressed. REPRODUCTIVE: Unremarkable as visualized. ABDOMEN and PELVIS: INTRAPERITONEAL SPACE: Unremarkable. No free air. No significant fluid collection. BONES/JOINTS: Lower lumbar facet arthropathy. L5-S1 degenerative disease and small retrolisthesis. No acute fracture. No dislocation. SOFT TISSUES: Unremarkable. VASCULATURE: Minimal vascular calcifications. No abdominal aortic aneurysm. LYMPH NODES: Unremarkable. No enlarged lymph nodes. IMPRESSION: 1. Diffuse hepatic steatosis. 2. Distal colonic and sigmoid colonic diverticulosis. No acute diverticulitis. Electronically signed by: Michael Gong DO 10/16/2019 3:33 AM CDT Due to temporary technical issues with the PACS/Fluency reporting system, reports are being signed by the in house radiologist without review as a courtesy to ensure prompt reporting. The interpreting r adiologist is fully responsible for the content of the report.
== END 2019-10-16 04:05 | disposition home or self-care (01) ==
LOC: ER 22:09
DX: B34.9 Viral infection, unspecified (principal); Z20.828 Contact with and (suspected) exposure to other viral communicable diseases; N30.00 Acute cystitis without hematuria; I10 Essential (primary) hypertension; Z88.2 Allergy status to sulfonamides; Z88.8 Allergy status to other drugs, medicaments and biological substances
CPT/HCPCS: 93005; 87040 ×2; 87088; 85025; 87086; 80048; 36415; 83735; 85610; 80076; 87077; 87186; 81015; 84484; 82728; 83880; 86140; 74177; 71045; 96374; 99284; U0002; Q9967; J0696

== ENCOUNTER 2022-04-06 20:03 | Emergency (ER) | payer BC ==
--- OUTSIDE RECORDS SUMMARY | 2022-04-06 20:06 | XMS REPORT | Continuity of Care Document ---
:1970 Author Organization [facility] t Address [address] [place] [address] Dr. Gutiérrez [address] [place] [id number] Care Team Providers Name Role Phone Unavailable Unavailable Unavailable Payers Payer Name Policy Type Policy Number Effective Date Expiration Date S [facility] - [id number] 2019 00:00:00 OUT OF STATE Problems This patient has no known problems. Allergies, Adverse Reactions, Alerts Allergy Allergy Status Severity Reaction(s) Onset Inactive Treating Comm ents Source Name Type Date Date Clinician NO KNOWN Drug Active [facility] Medications This patient has no known medications. Procedures This patient has no known procedures. Encounters Start End Encounter Admission Attending Care Care Encounter Source Date/Time Date/Time Type Type Clinicians Facility Department ID 2019-10-16 2019-10-16 Outpatient R [facility] [id number] [facility] 13:00:00 13:00:00 [facility] Results This patient has no known results.
[2022-04-06] MEDS ORDERED: DIAZEPAM 10 MG/2 ML INJ SYRINGE ONE (20:54)
[2022-04-06] MEDS ORDERED: NA CHLORIDE 0.9% 1,000 ML ONE ×2 (20:54→22:36)
[2022-04-06 21:26] LABS: Absolute Lymphocytes (CBC) 0.7 K/uL (0.7-4.9); Hematocrit 41.9 % (36.0-45.0); Lymphocytes % 7.5 % (15.3-44.8); MCV 84.5 fL (80-100); RBC Red Blood Cell Count 4.95 M/uL (3.86-4.86)
[2022-04-06 21:46] LABS: Bilirubin Total 1.1 mg/dL (0.2-1.0); Potassium 3.7 mmol/L (3.5-5.1); Protein, Total 6.8 g/dL (6.4-8.2)
[2022-04-06] MEDS ORDERED: CEFTRIAXONE 1000 MG/VIAL ONE (21:50)
--- NOTE | 2022-04-06 22:26 | RAD REPORT ---
EXAM DESCRIPTION: CT - Head Brain Wo Cont - 04/06/2022 10:13 pm CLINICAL HISTORY: WEAKNESS Headache, drowsiness COMPARISON: HEAD BRAIN W O CONTRAST dated 11/06/2012 TECHNIQUE: All CT scans are performed using dose optimization technique as appropriate and may inclu de automated exposure control or mA/KV adjustment according to patient size. FINDINGS: No intracranial hemorrhage, hydrocephalus or extra-axial fluid collection.No areas of brai n edema or evidence of midline shift. The paranasal sinuses and mastoids are clear. The calvarium is intact. IMPRESSION: No acute intracranial abnormality.
[2022-04-06] MEDS ORDERED: ONDANSETRON 4 MG/2 ML VIAL ONE (22:36)
[2022-04-07] MEDS ORDERED: DICYCLOMINE HCL 10 MG CAP ONE (00:27)
--- NOTE | 2022-04-07 00:29 | ER ---
Nurse's Notes [facility] Name: Shaylee Moraes Age: 52 yrs Sex: Female : 1970 Arrival Date: 04/06/2022 Time: 20:06 Bed 18 Private MD: Diagnosis: UTI/ Urinary tract infection, site not specified Presentation: 04/06 20:17 Chief complaint: Patient states: "I went to [facility] yesterday and got diagnosed with a mb9 UTI and kidney stones from both sides. I got worse overnight being nauseous and vomiting. I feel so sick and I've never felt like this before". Coronavirus screen: Vaccine status: Patient reports being unvaccinated. Ebola Screen: No symptoms or risks identified at this time. Initial Sepsis Screen: Does the patient meet any 2 criteria? No. Patient's initial sepsis screen is negative. Does the patient have a suspected source of infection? No. Patient's initial sepsis screen is negative. Risk Assessment: Do you want to hurt yourself or someone else? Patient reports no desire to harm self or others. Onset of symptoms was April 06, 2022. 20:17 Acuity: MIYA 3 mb9 20:17 Method Of Arrival: Ambulatory mb9 Historical: - Allergies: 20:20 promethazine HCl; mb9 20:20 sulfamethoxazole (bulk); mb9 20:20 TRIMETHOPRIM; mb9 - Home Meds: 20:20 Zofran Oral [Active]; tamsulosin oral [Active]; Cephalexin Oral [Active]; Tramadol Oral mb9 [Active]; - PMHx: 20:20 Hypertension; Migraines; UTI; mb9 - PSHx: 20:20 Cholecystectomy; mb9 - Immunization history:: Adult Immunizations up to date. - Social history:: Smoking status: Patient reports the use of cigarette tobacco products, smokes one pack cigarettes per day. Screenin:55 Abuse screen: Denies threats or abuse. Denies injuries from another. Nutritional aa9 screening: Has had N/V for 3 or more days. Tuberculosis screening: No symptoms or risk factors identified. 04/07 01:06 [facility] ED Fall Risk Assessment (Adult) History of falling in the last 3 months, aa9 including since admission No falls in past 3 months (0 pts) Confusion or Disorientation No (0 pts) Intoxicated or Sedated No (0 pts) Impaired Gait No (0 pts) Mobility Assist Device Used No (0 pt) Altered Elimination No (0 pt). Assessment: 04/06 21:41 General: Appears uncomfortable, obese, Behavior is cooperative, drowsy. Pain: Denies aa9 pain. Neuro: Level of Consciousness is awake, obeys commands, Oriented to person, place, time, situation, Weakness Speech is normal. Respiratory: Airway is patent Respiratory effort is even, unlabored. GI: Abdomen is obese. Derm: Skin is intact, is healthy with good turgor. 23:59 Reassessment: Patient and/or family updated on plan of care and expected duration. Pain aa9 level reassessed. Reassessment: Patient appears in no apparent distress at this time. Patient states symptoms have not improved. 04/07 00:31 Reassessment: Patient appears in no apparent distress at this time. Patient states aa9 symptoms have not improved. Vital Signs: 04/06 20:17 BP 118 / 67; Pulse 84; Resp 16; Temp 98.2; Pulse Ox 93% ; Weight 128.82 kg; Height 5 mb9 ft. 5 in. (165.10 cm); Pain 6/10; 21:30 BP 128 / 75; Pulse 73; Resp 19; Pulse Ox 94% on R/A; aa9 22:29 BP 128 / 72; Pulse 71; Resp 15 S; Pulse Ox 94% on R/A; aa9 23:45 BP 115 / 57 Supine; Pulse 71; aa9 23:50 BP 128 / 71 Sitting; Pulse 81; aa9 23:55 BP 134 / 70 Standing; Pulse 90; aa9 04/07 01:07 BP 116 / 55; Pulse 89; Resp 19; Pulse Ox 98% on R/A; aa9 04/06 20:17 Body Mass Index 47.26 (128.82 kg, 165.10 cm) mb9 ED Course: 04/06 20:06 Patient arrived in ED. jj6 20:20 Triage completed. mb9 20:20 Arm band placed on. mb9 20:28 Selina Lipscomb, DENNIS is Primary Nurse. aa9 20:32 Ladan Hooks [facility]C [facility]. snw 20:32 Shade Frederick MD is Attending Physician. snw 21:00 Inserted saline lock: 20 gauge in right antecubital area, using aseptic technique. aa9 Blood collected. 21:08 CBC with Diff Sent. aa9 21:08 CMP Sent. aa9 21:08 Lactate w/ 2H reflex if indic. Sent. aa9 21:43 CMP Sent. aa9 21:43 Blood Culture Adult (2) Sent. aa9 21:43 Lactate w/ 2H reflex if indic. Sent. aa9 21:43 Inserted saline lock: 20 gauge in left antecubital area, using aseptic technique. Blood aa9 collected. 22:15 CT Head Brain wo Cont In Process Unspecified. EDMS 04/07 01:06 Patient has correct armband on for positive identification. Call light in reach. Side aa9 rails up X2. Adult w/ patient. 01:06 No provider procedures requiring assistance completed. IV discontinued, intact, aa9 bleeding controlled, No redness/swelling at site. Pressure dressing applied. Administered Medications: 04/06 21:07 Drug: NS 0.9% 1000 ml Route: IV; Rate: 1 bolus; Site: right antecubital; aa9 22:37 Follow up: Response: No adverse reaction; IV Status: Completed infusion; IV Intake: aa9 1000ml 21:08 Drug: Valium (diazepam) 5 mg Route: IVP; Site: right antecubital; aa9 22:14 Follow up: Response: No adverse reaction aa9 22:04 Drug: Rocephin (cefTRIAXone) 1 grams Route: IV; Rate: calculated rate; Site: right aa9 antecubital; 04/07 01:05 Follow up: Response: No adverse reaction; IV Status: Completed infusion; IV Intake: [id number] 04/06 22:37 Drug: NS 0.9% 1000 ml Route: IV; Rate: 1 bolus; Site: right antecubital; aa9 04/07 01:05 Follow up: Response: No adverse reaction; IV Status: Completed infusion; IV Intake: aa9 1000ml 04/06 22:37 Drug: Zofran (Ondansetron) 4 mg Route: IVP; Site: right antecubital; aa9 04/07 00:31 Follow up: Response: No adverse reaction; Nausea unchanged; notified provider aa9 00:29 Drug: Dicyclomine 20 mg Route: PO; aa9 01:05 Follow up: Response: No adverse reaction aa9 Medication: 01:07 VIS not applicable for this client. aa9 Intake: 04/06 22:37 IV: 1000ml; Total: 1000ml. aa9 04/07 01:05 IV: 1000ml; Total: 2000ml. aa9 01:05 IV: 10ml; Total: 2010ml. aa9 Outcome: 00:29 Discharge ordered by MD. payne 01:06 Discharged to home via wheelchair, with family. aa9 01:06 Condition: stable 01:06 Discharge instructions given to patient, family, Instructed on discharge instructions, follow up and referral plans. medication usage, Demonstrated understanding of instructions, follow-up care, medications, Prescriptions given X 1. 01:07 Patient left the ED. aa9 Signatures: Dispatcher [employer] EDMS Ladan Hooks, ORNAMENTER-C ORNAMENTER-Csnw Jazmín De La Cruz jj6 Selina Lipscomb RN RN Teena Navarrete RN RN mb9 Corrections: (The following items were deleted from the chart) 04/06 20:22 20:20 PSHx: None; sandi junior
--- NOTE | 2022-04-07 00:29 | EDPHYS ---
Physician Documentation [facility] Name: Shaylee Moraes Age: 52 yrs Sex: Female : 1970 Arrival Date: 04/06/2022 Time: 20:06 Bed 18 Private MD: ED Physician Shade Frederick HPI: 04/06 21:16 This 52 yrs old Female presents to ER via Ambulatory with complaints of Urinary snw Incontinence, Low Back Pain, Nausea/Vomiting, Dizziness, General Weakness. 21:16 The patient presents to the emergency department with nausea, vomiting. Onset: The snw symptoms/episode began/occurred acutely, 2 day(s) ago, and became persistent. Associated signs and symptoms: Pertinent positives: headache, neck pain, back pain, weakness, kidney stones. Severity of symptoms: At their worst the symptoms were moderate. The patient has experienced similar episodes in the past. The patient has been recently seen by a physician: Grace yesterday. Historical: - Allergies: 20:20 promethazine HCl; mb9 20:20 sulfamethoxazole (bulk); mb9 20:20 TRIMETHOPRIM; mb9 - Home Meds: 20:20 Zofran Oral [Active]; tamsulosin oral [Active]; Cephalexin Oral [Active]; Tramadol Oral mb9 [Active]; - PMHx: 20:20 Hypertension; Migraines; UTI; mb9 - PSHx: 20:20 Cholecystectomy; mb9 - Immunization history:: Adult Immunizations up to date. - Social history:: Smoking status: Patient reports the use of cigarette tobacco products, smokes one pack cigarettes per day. ROS: 21:08 Eyes: Negative for injury, pain, redness, and discharge, ENT: Negative for injury, snw pain, and discharge, Neck: Negative for injury, pain, and swelling, Cardiovascular: Negative for chest pain, palpitations, and edema, Respiratory: Negative for shortness of breath, cough, wheezing, and pleuritic chest pain, Abdomen/GI: Negative for abdominal pain, diarrhea, and constipation, positive for nausea, vomiting, Back: Negative for injury and pain, : Negative for injury, bleeding, discharge, and swelling, Skin: Negative for injury, rash, and discoloration, Neuro: Negative for headache, weakness, numbness, tingling, and seizure, Psych: Negative for depression, anxiety, suicide ideation, homicidal ideation, and hallucinations. 21:08 Constitutional: Positive for fatigue, malaise, poor PO intake. 21:08 MS/extremity: Positive for lower back pain. Exam: 21:06 Constitutional: This is a well developed, well nourished patient who is awake, alert, snw and in no acute distress. Head/Face: Normocephalic, atraumatic. Eyes: Pupils equal round and reactive to light, extra-ocular motions intact. Lids and lashes normal. Conjunctiva and sclera are non-icteric and not injected. Cornea within normal limits. Periorbital areas with no swelling, redness, or edema. ENT: Nares patent. No nasal discharge, no septal abnormalities noted. Tympanic membranes are normal and external auditory canals are clear. Oropharynx with no redness, swelling, or masses, exudates, or evidence of obstruction, uvula midline. Mucous membranes moist. Neck: Trachea midline, no thyromegaly or masses palpated, and no cervical lymphadenopathy. Supple, full range of motion without nuchal rigidity, or vertebral point tenderness. Lateral neck tenderness. No Meningismus. Chest/axilla: Normal chest wall appearance and motion. Nontender with no deformity. No lesions are appreciated. Cardiovascular: Regular rate and rhythm with a normal S1 and S2. No gallops, murmurs, or rubs. Normal PMI, no JVD. No pulse deficits. Respiratory: Lungs have equal breath sounds bilaterally, clear to auscultation and percussion. No rales, rhonchi or wheezes noted. No increased work of breathing, no retractions or nasal flaring. 21:06 Back: No spinal tenderness. No costovertebral tenderness. Full range of motion. Skin: Warm, dry with normal turgor. Normal color with no rashes, no lesions, and no evidence of cellulitis. Neuro: Awake and alert, GCS 15, oriented to person, place, time, and situation. Cranial nerves II-XII grossly intact. Motor strength 5/5 in all extremities. Sensory grossly intact. Cerebellar exam normal. Normal gait. Psych: Awake, alert, with orientation to person, place and time. Behavior, mood, and affect are within normal limits. 21:06 Abdomen/GI: Inspection: abdomen appears normal, Bowel sounds: normal, Palpation: mild abdominal tenderness, in the suprapubic area and right lower quadrant. 21:06 Musculoskeletal/extremity: ROM: no acute changes, Circulation is intact in all extremities. Sensation intact. Vital Signs: 20:17 BP 118 / 67; Pulse 84; Resp 16; Temp 98.2; Pulse Ox 93% ; Weight 128.82 kg; Height 5 mb9 ft. 5 in. (165.10 cm); Pain 6/10; 21:30 BP 128 / 75; Pulse 73; Resp 19; Pulse Ox 94% on R/A; aa9 22:29 BP 128 / 72; Pulse 71; Resp 15 S; Pulse Ox 94% on R/A; aa9 23:45 BP 115 / 57 Supine; Pulse 71; aa9 23:50 BP 128 / 71 Sitting; Pulse 81; aa9 23:55 BP 134 / 70 Standing; Pulse 90; aa9 04/07 01:07 BP 116 / 55; Pulse 89; Resp 19; Pulse Ox 98% on R/A; aa9 04/06 20:17 Body Mass Index 47.26 (128.82 kg, 165.10 cm) mb9 MDM: 04/06 20:32 Patient medically screened. snw 21:14 Differential diagnosis: Nonspecific abd pain, pancreatitis, appendicitis, snw diverticulitis. Data reviewed: vital signs, nurses notes. Historians other than the Patient: Daughter/Son: Daughter. External Records Reviewed: records from [place] yesterday including bloodwork, CT abd/pelvis. 04/07 00:28 Counseling: I had a detailed discussion with the patient and/or guardian regarding: the snw historical points, exam findings, and any diagnostic results supporting the discharge/admit diagnosis, lab results, radiology results, the need for outpatient follow up, for definitive care, to return to the emergency department if symptoms worsen or persist or if there are any questions or concerns that arise at home. Response to treatment: There is no appreciated change of the patient's symptoms at this time, the patient's symptoms have mildly improved after treatment. Special discussion: Based on the history and exam findings, there is no indication for further emergent testing or inpatient evaluation. I discussed with the patient/guardian the need to see the primary care provider for further evaluation of the symptoms. 00:37 External Records Reviewed: CT from [place] yesterday: Bilateral nonobstructing snw nephrolithiasis. No acute abdominal or pelvic abnormalities are id'd . 04/06 20:45 Order name: Blood Culture Adult (2) snw 04/06 20:45 Order name: CBC with Diff; Complete Time: 21:31 snw 04/06 20:45 Order name: CMP; Complete Time: 21:46 snw 04/06 20:45 Order name: Lactate w/ 2H reflex if indic.; Complete Time: 21:46 snw 04/06 21:46 Order name: CT Head Brain wo Cont; Complete Time: 22:27 snw 04/06 21:50 Order name: Glucose, Ancillary Testing; Complete Time: 21:51 EDMS 04/06 20:45 Order name: EKG; Complete Time: 20:45 snw 04/06 20:45 Order name: Accucheck; Complete Time: 21:38 snw 04/06 20:45 Order name: Cardiac monitoring; Complete Time: 21:07 snw 04/06 20:45 Order name: EKG - Nurse/Tech; Complete Time: 21:02 snw 04/06 20:45 Order name: IV Saline Lock - Large Bore; Complete Time: 21:08 snw 04/06 20:45 Order name: Labs collected and sent; Complete Time: 21:08 snw 04/06 20:45 Order name: O2 Per Protocol; Complete Time: 21:08 snw 04/06 20:45 Order name: O2 Sat Monitoring; Complete Time: 21:08 snw 04/06 20:45 Order name: Vital Signs; Complete Time: 21:38 snw 04/06 23:41 Order name: Orthostatics; Complete Time: 23:54 snw 04/07 00:13 Order name: PO challenge; Complete Time: 01:05 snw EC/09 21:00 Rate is 70 beats/min. Rhythm is regular. QRS [place] is Normal. QRS interval is normal. QT snw interval is normal. No Q waves. Clinical impression: Normal ECG. Administered Medications: 21:07 Drug: NS 0.9% 1000 ml Route: IV; Rate: 1 bolus; Site: right antecubital; aa9 22:37 Follow up: Response: No adverse reaction; IV Status: Completed infusion; IV Intake: aa9 1000ml 21:08 Drug: Valium (diazepam) 5 mg Route: IVP; Site: right antecubital; aa9 22:14 Follow up: Response: No adverse reaction 9 22:04 Drug: Rocephin (cefTRIAXone) 1 grams Route: IV; Rate: calculated rate; Site: right aa9 antecubital; 04/07 01:05 Follow up: Response: No adverse reaction; IV Status: Completed infusion; IV Intake: [id number] 04/06 22:37 Drug: NS 0.9% 1000 ml Route: IV; Rate: 1 bolus; Site: right antecubital; 04/07 01:05 Follow up: Response: No adverse reaction; IV Status: Completed infusion; IV Intake: aa9 1000ml 04/06 22:37 Drug: Zofran (Ondansetron) 4 mg Route: IVP; Site: right antecubital; 04/07 00:31 Follow up: Response: No adverse reaction; Nausea unchanged; notified provider 00:29 Drug: Dicyclomine 20 mg Route: PO; 01:05 Follow up: Response: No adverse reaction Disposition: 19:09 Co-signature as Attending Physician, Shade Frederick MD I reviewed the patient's care rn provided by the Advanced Practice Provider and agree with the diagnosis and treatment plan. Disposition Summary: 04/07/22 00:29 Discharge Ordered Location: Home snw Condition: Stable snw Diagnosis - UTI/ Urinary tract infection, site not specified snw Followup: snw - With: Emergency Department - When: As needed - Reason: Worsening of condition Followup: snw - With: Private Physician - When: 2 - 3 days - Reason: Recheck today's complaints, Continuance of care, Re-evaluation by your physician Discharge Instructions: - Discharge Summary Sheet snw - Hypertension, Adult snw - Urinary Tract Infection, Adult snw - Rehydration, Adult snw - Form - Blood Pressure Record Sheet snw Forms: - Medication Reconciliation Form snw - Thank You Letter snw - Antibiotic Education snw - Prescription Opioid Use snw Prescriptions: - dicyclomine 20 mg Oral Tablet - take 2 tablets by ORAL route 3 times per day; 30 tablet; Refills: 0, Product snw Selection Permitted Signatures: Dispatcher [employer] Ladan Hartman FNP-C PROJECT CONSTRUCTION ASSISTANT MANAGER-Csnw Shade Frederick MD MD rn Avalos, Aylin, RN RN aa9 Teena Cano RN RN mb9 Corrections: (The following items were deleted from the chart) 04/06 20:22 20:20 PSHx: None; mb9 mb9
[2022-04-07 02:28] VITALS: TEMP 98.2
[2022-04-07 02:34] VITALS: BP 116/55; O2SAT 98
== END 2022-04-07 01:07 | disposition home or self-care (01) ==
LOC: ER 20:03
DX: N39.0 Urinary tract infection, site not specified (principal); I10 Essential (primary) hypertension; Z88.2 Allergy status to sulfonamides; Z88.8 Allergy status to other drugs, medicaments and biological substances
CPT/HCPCS: 96365; 96361; 93005; 87040 ×2; 85025; 36415; 82947; 83605; 80053; 70450; 96375; 99284; 96366; J3360; J7030 ×2; J2405